=== PATIENT | female | born 1930 | race Native Hawaiian/Other Pacific Islander ===

== ENCOUNTER 2016-11-24 12:52 | Outpatient (CLI) | payer OTHER ==
[2016-11-24 13:27] LABS: PLATELET COUNT 340 K/uL (152-353)
[2016-11-24 15:58] LABS: POTASSIUM 4.8 mmol/L (3.6-5.2); SODIUM 137 mmol/L (136-145)
[2016-12-05] MEDS ORDERED: FURO40TA93 PO (01:20)
[2016-12-05] MEDS ORDERED: GABA300C2 PO (01:20)
[2016-12-05] MEDS ORDERED: ALPR0.5T24 PO (01:21)
[2016-12-05] MEDS ORDERED: WARFARIN5 MG PO (01:21)
[2016-12-05] MEDS ORDERED: KLOR-CON M2020 MEQ PO (01:22)
[2016-12-05] MEDS ORDERED: AZIT250T3 PO (01:24)
[2016-12-05] MEDS ORDERED: CLARITIN10 MG PO (01:24)
[2016-12-05] MEDS ORDERED: ACID REDUCER150 MG PO (01:25)
[2016-12-05] MEDS ORDERED: ALLO100T22 PO (01:25)
[2016-12-05] MEDS ORDERED: NAPROXEN SOD PO (01:26)
[2016-12-05] MEDS ORDERED: CITALOPRAM40 MG PO (01:27)
[2016-12-05] MEDS ORDERED: PANT40TA PO (01:27)
[2016-12-05] MEDS ORDERED: COLCRYS 0.6MG0.6 MG PO (01:28)
[2016-12-05] MEDS ORDERED: SPIRIVA IN (01:29)
[2016-12-05] MEDS ORDERED: FLUTMIS6 INH (01:29)
[2016-12-05] MEDS ORDERED: VITAMIN D1000 UNIT PO (01:30)
[2016-12-05] MEDS ORDERED: CALCIUM600 M1 PO (01:30)
[2016-12-05] MEDS ORDERED: ALBU90AE13 INH (01:31)
[2016-12-05] MEDS ORDERED: ALBUSOL IN (01:32)
== END 2016-11-24 23:38 | disposition home or self-care (01) ==
LOC: LAB 12:52
PROVIDERS: Nurse Practitioner
DX: R53.1 Weakness (principal); N28.89 Other specified disorders of kidney and ureter; E55.9 Vitamin D deficiency, unspecified; E78.00 Pure hypercholesterolemia, unspecified; I48.91 Unspecified atrial fibrillation; Z79.899 Other long term (current) drug therapy; Z51.81 Encounter for therapeutic drug level monitoring
CPT/HCPCS: 80053; 80061; 82306; 84443; 85027; 85610

== ENCOUNTER 2016-12-04 00:50 | Outpatient (CLI) | payer OTHER ==
[2016-12-05] MEDS ORDERED: FURO40TA93 PO (01:20)
[2016-12-05] MEDS ORDERED: GABA300C2 PO (01:20)
[2016-12-05] MEDS ORDERED: WARFARIN5 MG PO (01:21)
[2016-12-05] MEDS ORDERED: ALPR0.5T24 PO (01:21)
[2016-12-05] MEDS ORDERED: KLOR-CON M2020 MEQ PO (01:22)
[2016-12-05] MEDS ORDERED: AZIT250T3 PO (01:24)
[2016-12-05] MEDS ORDERED: CLARITIN10 MG PO (01:24)
[2016-12-05] MEDS ORDERED: ACID REDUCER150 MG PO (01:25)
[2016-12-05] MEDS ORDERED: ALLO100T22 PO (01:25)
[2016-12-05] MEDS ORDERED: NAPROXEN SOD PO (01:26)
[2016-12-05] MEDS ORDERED: CITALOPRAM40 MG PO (01:27)
[2016-12-05] MEDS ORDERED: PANT40TA PO (01:27)
[2016-12-05] MEDS ORDERED: COLCRYS 0.6MG0.6 MG PO (01:28)
[2016-12-05] MEDS ORDERED: SPIRIVA IN (01:29)
[2016-12-05] MEDS ORDERED: FLUTMIS6 INH (01:29)
[2016-12-05] MEDS ORDERED: CALCIUM600 M1 PO (01:30)
[2016-12-05] MEDS ORDERED: VITAMIN D1000 UNIT PO (01:30)
[2016-12-05] MEDS ORDERED: ALBU90AE13 INH (01:31)
[2016-12-05] MEDS ORDERED: ALBUSOL IN (01:32)
== END 2016-12-04 01:10 | disposition short-term general hospital (02) ==
LOC: AMB 00:50
DX: R51 Headache (principal); H53.8 Other visual disturbances; S51.012A Laceration without foreign body of left elbow, initial encounter; I10 Essential (primary) hypertension; W06.XXXA Fall from bed, initial encounter; Y93.89 Activity, other specified; Y92.092 Bedroom in other non-institutional residence as the place of occurrence of the external cause
CPT/HCPCS: A0425; A0429